=== PATIENT | female | born 1980 | race Caucasian/White ===

== ENCOUNTER 2016-05-02 | Outpatient (CLI) | payer OTHER | END 2016-05-02 12:25 | disposition critical access hospital (66) | CPT/HCPCS: A0425; A0429 ==

== ENCOUNTER 2016-05-02 12:43 | Observation (INO) | payer OTHER ==
[2016-05-02] MEDS ORDERED: LORazepam 2 MG/ML SYRINGE ONE ×2 (12:54→14:07)
[2016-05-02] MEDS ORDERED: SODIUM CHLORIDE 0.9% 1,000 ML IV ONE ×2 (13:47→16:34)
[2016-05-02] MEDS ORDERED: LORazepam 2 MG/ML SYRINGE IVP STA (14:07)
[2016-05-02] MEDS ORDERED: IOPAMIDOL-300 100 ML VIAL IVP ONE (15:18)
[2016-05-02] MEDS ORDERED: SODIUM CHLORIDE FLUSH 0.9% 10 ML SYRINGE IVP PRN (18:22)
[2016-05-02] MEDS ORDERED: ONDANSETRON ODT 4 MG TABLET TL PRN (18:22)
[2016-05-02] MEDS: SODIUM CHLORIDE 0.9% 1,000 ML IV SCH ×2 (20:20→22:56)
[2016-05-02] MEDS: SODIUM CHLORIDE FLUSH 0.9% 10 ML SYRINGE IVP SCH (21:49)
[2016-05-03] MEDS: SODIUM CHLORIDE 0.9% 1,000 ML IV SCH ×2 (06:39→14:44)
[2016-05-03] MEDS: SODIUM CHLORIDE FLUSH 0.9% 10 ML SYRINGE IVP SCH ×2 (06:41→14:45)
[2016-05-03] MEDS ORDERED: POLYETHYLENE GLYCOL 3350 17 GM PACKET PO SCH (09:00)
[2016-05-03] MEDS ORDERED: GADOBUTROL 7.5 MMOL/7.5 ML VIAL IVP ONE (16:02)
[2016-05-03] MEDS ORDERED: POTASSIUM CHLORIDE 20 MEQ TABLET PO STA (16:43)
== END 2016-05-03 18:00 | disposition home or self-care (01) ==
DX: G93.40 Encephalopathy, unspecified (principal); S06.0X9A Concussion with loss of consciousness of unspecified duration, initial encounter; S00.03XA Contusion of scalp, initial encounter; S00.12XA Contusion of left eyelid and periocular area, initial encounter; S40.022A Contusion of left upper arm, initial encounter; V49.9XXA Car occupant (driver) (passenger) injured in unspecified traffic accident, initial encounter; R56.9 Unspecified convulsions; F41.9 Anxiety disorder, unspecified; F90.9 Attention-deficit hyperactivity disorder, unspecified type; F32.9 Major depressive disorder, single episode, unspecified; F17.200 Nicotine dependence, unspecified, uncomplicated
CPT/HCPCS: 36415; 70450; 70486; 70553; 71010; 72125; 74177; 80053; 80306; 80307; 80320; 80329; 81003; 81025; 82330; 82550; 83690; 84443; 84702; 85025; 93005; 93010; 96361; 96374; 99284; 99285; 99406; A9270; A9585; G0378; J2060; Q9967

== ENCOUNTER 2016-07-05 13:54 | Day surgery (SDC) | payer OTHER ==
[2016-07-05] MEDS ORDERED: RHO(D) IMMUNE GLOBULIN 300 MCG SYRINGE IM STA (16:22)
[2016-07-05] MEDS ORDERED: LACTATED RINGERS 1,000 ML IV ONE (17:10)
[2016-07-05] MEDS ORDERED: DEXAMETHASONE 4 MG/ML VIAL IVP ONE (17:20)
[2016-07-05] MEDS ORDERED: fentaNYL 100 MCG/2 ML VIAL IVP ONE (17:20)
[2016-07-05] MEDS ORDERED: KETOROLAC 30 MG/ML VIAL IVP ONE (17:20)
[2016-07-05] MEDS ORDERED: ONDANSETRON 4 MG/2 ML VIAL IVP ONE (17:20)
[2016-07-05] MEDS ORDERED: LIDOCAINE-PF 2% 10 ML AMP SUBQ ONE (17:20)
[2016-07-05] MEDS ORDERED: MIDAZOLAM 2 MG/2 ML VIAL IVP ONE (17:20)
[2016-07-05] MEDS ORDERED: PROPOFOL 200 MG/20 ML VIAL IVP ONE (17:20)
[2016-07-05] MEDS ORDERED: MIDAZOLAM 2 MG/2 ML VIAL ONE (17:40)
== END 2016-07-05 16:21 | disposition home or self-care (01) ==
PROC: 10D17ZZ Extraction of Products of Conception, Retained, Via Natural or Artificial Opening (ICD-10-PCS; principal; 2016-07-05 16:45)
DX: O03.4 Incomplete spontaneous abortion without complication (principal); D25.9 Leiomyoma of uterus, unspecified; F17.200 Nicotine dependence, unspecified, uncomplicated; F32.9 Major depressive disorder, single episode, unspecified; F41.9 Anxiety disorder, unspecified
CPT/HCPCS: 36415; 59812; 76801; 80048; 84702; 85025; 86900; 86901; 96374; 99283; 99284; J7120

== ENCOUNTER 2016-12-12 18:40 | Emergency (ER) | payer OTHER ==
[2016-12-12 18:50] VITALS: BP 155/116
--- NOTE | 2016-12-12 19:39 | ED Physician Documentation ---
PD HPI URI - Stated complaint Stated Complaint: 6 WKS/WEAK/FEVER - Chief complaint Chief Complaint: General - History obtained from History obtained from: Patient - History of Present Illness Timing - onset: Today Timing duration: Hours Timing details: Gradual onset, Still present Associated symptoms: Fever (she says she had temp of 100.5 at home earlier this afternoon. Feeling generally weak. No URI symptoms per se.) Contributing factors: No: Sick contact, Travel, Immunocompromised Similar symptoms before: Has not had sx before Recently seen: Not recently seen Review of Systems Constitutional: reports: Fever, Chills, Myalgias (just today) Nose: denies: Rhinorrhea / runny nose, Congestion Throat: denies: Sore throat Cardiac: denies: Chest pain / pressure, Palpitations Respiratory: denies: Dyspnea, Cough GI: reports: Nausea. denies: Abdominal Pain, Vomiting, Diarrhea : reports: Now EGA (6 weeks). denies: Discharge, Vaginal bleeding Skin: denies: Rash, Lesions PD PAST MEDICAL HISTORY - Past Medical History Past Medical History: Yes Cardiovascular: None Respiratory: None Neuro: None Endocrine/Autoimmune: None GI: Other : None HEENT: Chronic sinusitis Psych: Depression, Anxiety Derm: None - Past Surgical History Past Surgical History: Yes Ortho: Other - Present Medications Home Medications: Ambulatory Orders Medication Instructions Recorded Confirmed buPROPion [Wellbutrin Sr] 300 mg PO BID 05/03/16 05/03/16 Doxylamine Succinate [Wal-Lance] 25 mg PO Q6H PRN #60 tablet 12/12/16 Famotidine [Pepcid] 20 mg PO ONCE #30 tablet 12/12/16 Ondansetron Odt [Zofran] 4 mg TL Q6H PRN #15 tablet 12/12/16 Prazosin [Minipress] 1 mg DAILY 12/12/16 12/12/16 Pyridoxine HCl [Vitamin B-6] 25 mg PO BID #60 tablet 12/12/16 - Allergies Allergies/Adverse Reactions: Allergies Allergy/AdvReac Type Severity Reaction Status Date / Time latex Allergy Unknown Verified 12/12/16 18:51 - Social History Does the pt smoke?: No Smoking Status: Never smoker Does the pt drink ETOH?: No Does the pt have substance abuse?: No PD ED PE NORMAL - Vitals Vital signs reviewed: Yes - General General: Alert and oriented X 3, No acute distress, Well developed/nourished - Neck Neck: Supple, no meningeal sign, No adenopathy - Cardiac Cardiac: RRR, No murmur - Respiratory Respiratory: Clear bilaterally - Abdomen Abdomen: Normal bowel sounds, Soft, Non tender, Non distended - Female Female : Deferred, Other (bedside U/S showed IUP with GS 5.5 size. ) - Rectal Rectal: Deferred - Back Back: No CVA TTP - Derm Derm: Normal color, Warm and dry Results - Vitals Vitals: Oxygen O2 Source Room air - Labs Labs: Laboratory Tests 12/12/16 18:55 Urine Color YELLOW Urine Clarity CLEAR Urine pH 7.5 Ur Specific [place] 1.015 Urine Protein NEGATIVE Urine Glucose (UA) NEGATIVE Urine Ketones NEGATIVE Urine Occult Blood NEGATIVE Urine Nitrite NEGATIVE Urine Bilirubin NEGATIVE Urine Urobilinogen 0.2 (NORMAL) Ur Leukocyte Esterase NEGATIVE Ur Microscopic Review NOT INDICATED Urine Culture Comments NOT INDICATED Procedures - Bedside sono Bedside sono by EMP: Bedside sono showed IUP with GS 5.5 size. No free fluid. Heart beat not seen but reasonable with dates. PD MEDICAL DECISION MAKING - ED course Complexity details: re-evaluated patient (repeat BP before discharge was normal. Initial was not accurate I don't think. ), considered differential, d/w patient Departure - Departure Disposition: 01 Home, Self Care Clinical Impression: Mild fever, Early stage of Condition: Stable Record reviewed to determine appropriate education?: Yes Follow-Up: Camilo Hylton MD [Provider Admit Priv/Credential] - Prescriptions: Doxylamine Succinate [Wal-Lance] 25 mg PO Q6H PRN #60 tablet PRN Reason: Nausea / Vomiting Famotidine [Pepcid] 20 mg PO ONCE #30 tablet Ondansetron Odt [Zofran] 4 mg TL Q6H PRN #15 tablet PRN Reason: Nausea / Vomiting Pyridoxine HCl [Vitamin B-6] 25 mg PO BID #60 tablet Comments: Drink lots of fluids. At this point there is no obvious cause for the fever. It may be an early cold. See how you feel tomorrow or the next day. Tylenol if needed for fevers. For nausea, take vitamin B6 twice daily for the next month. Add doxylamine 3 times a day as needed. He can also use ondansetron for nausea as needed. For the heartburn and reflux, use famotidine daily for the next month and you can add antacid such as Maalox or Mylanta. Recheck with Dr. Hylton's office, call them tomorrow. They may want to get a repeat hCG blood level in 2-3 days to ensure its rising appropriately. The looked appropriate for dates at this point. Discharge Date/Time: 12/12/16 21:00
[2016-12-12 19:44] LABS: BILIRUBIN,URINE NEGATIVE (NEGATIVE); PH,URINE 7.5 PH (5.0-7.5); UA CHARGE (STRIP ONLY) YES; UR CULTURE IF IND NOT INDICATED
[2016-12-12] MEDS ORDERED: ONDANSETRON ODT 4 MG TABLET TL STA (20:13)
[2016-12-12] MEDS ORDERED: ACETAMINOPHEN 325 MG TABLET PO STA (20:13)
[2016-12-12] MEDS ORDERED: MAG HYDROX/AL HYDROX/SIMETH 30 ML UDC PO STA (20:25)
[2016-12-12] MEDS ORDERED: FAMOTIDINE 20 MG TABLET PO STA (20:25)
[2016-12-12] MEDS ORDERED: ONDANSETRON ODT 4 MG TABLET ONE (20:26)
[2016-12-12] MEDS ORDERED: ACETAMINOPHEN 325 MG TABLET PO ONE (20:26)
[2016-12-12] MEDS ORDERED: FAMOTIDINE 20 MG TABLET ONE (20:44)
[2016-12-12] MEDS ORDERED: MAG HYDROX/AL HYDROX/SIMETH 30 ML UDC ONE (20:44)
== END 2016-12-12 21:00 | disposition home or self-care (01) ==
LOC: ED 18:40
DX: O26.891 Other specified pregnancy related conditions, first trimester (principal); Z3A.01 Less than 8 weeks gestation of pregnancy; R50.9 Fever, unspecified
CPT/HCPCS: 81003; 99283; A9270; Q0162; 81001; 87086

== ENCOUNTER 2016-12-15 08:03 | Emergency (ER) | payer OTHER ==
--- NOTE | 2016-12-15 08:08 | ED Physician Documentation ---
PD HPI FEMALE - Stated complaint Stated Complaint: SPOTTING/7WKS - Chief complaint Chief Complaint: General - History obtained from History obtained from: Patient - History of Present Illness Timing - onset: Today Timing - details: Abrupt onset, Still present (had onset of some lower abd/ pelvic cramps and spotting blood vaginally. Is about 7 weeks by dates and she is concerned about miscarriage, as had one in June at about same gestational age.) Associated symptoms: Fever (subjectively couple days ago for a day, then normal. Had feeling of general weakness with it. Improved yesterday and then with cramps and bleeding today.), Vaginal bleeding. No: Chest/shoulder pain, Abdominal pain, Vaginal discharge, Dysuria, Urinary frequency Contributing factors: (about 7 weeks by dates) Similar symptoms before: Diagnosis (early miscarriage in June 2016.) Recently seen: Emergency Dept (for general weakness and subjective fever, malaise) Review of Systems Constitutional: denies: Myalgias Ears: denies: Drainage/discharge, Tinnitus/ringing Throat: denies: Sore throat Cardiac: denies: Chest pain / pressure, Palpitations Respiratory: denies: Dyspnea, Cough Endocrine: denies: Weight loss, Easy bruising / bleeding Immunocompromised: denies: Immunocompromised PD PAST MEDICAL HISTORY - Past Medical History Cardiovascular: None Respiratory: None Neuro: None Endocrine/Autoimmune: None GI: Other : None HEENT: Chronic sinusitis Psych: Depression, Anxiety Derm: None - Past Surgical History Past Surgical History: Yes Ortho: Other - Present Medications Home Medications: Ambulatory Orders Medication Instructions Recorded Confirmed buPROPion [Wellbutrin Sr] 300 mg PO BID 05/03/16 05/03/16 Doxylamine Succinate [Wal-Lance] 25 mg PO Q6H PRN #60 tablet 12/12/16 Famotidine [Pepcid] 20 mg PO ONCE #30 tablet 12/12/16 Ondansetron Odt [Zofran] 4 mg TL Q6H PRN #15 tablet 12/12/16 Prazosin [Minipress] 1 mg DAILY 12/12/16 12/12/16 Pyridoxine HCl [Vitamin B-6] 25 mg PO BID #60 tablet 12/12/16 - Allergies Allergies/Adverse Reactions: Allergies Allergy/AdvReac Type Severity Reaction Status Date / Time latex Allergy Unknown Verified 12/12/16 18:51 - Social History Does the pt smoke?: Yes Smoking Status: Current every day smoker Does the pt drink ETOH?: Yes Does the pt have substance abuse?: No PD ED PE NORMAL - Vitals Vital signs reviewed: Yes - General General: Alert and oriented X 3, No acute distress (but some anxious), Well developed/nourished - HEENT HEENT: Pharynx benign - Neck Neck: Supple, no meningeal sign - Cardiac Cardiac: RRR, No murmur - Respiratory Respiratory: Clear bilaterally - Abdomen Abdomen: Normal bowel sounds, Soft, Non distended, No organomegaly, Other - Female Female : Deferred - Rectal Rectal: Deferred - Back Back: No CVA TTP - Derm Derm: Normal color, Warm and dry, No rash - Extremities Extremities: No edema, No calf tenderness / cord Results - Vitals Vitals: Vital Signs - 24 hr 12/15/16 12/15/16 08:06 10:14 Temperature 36.1 C L 36.3 C L Heart Rate 72 82 Respiratory 16 12 Rate Blood Pressure 141/96 H 127/89 H O2 Saturation 99 96 Oxygen O2 Source Room air - Labs Labs: Laboratory Tests 12/15/16 12/15/16 12/15/16 08:41 08:41 10:00 HCG, Quant 606.02 Urine Color LIGHT YELLOW Urine Clarity HAZY Urine pH 5.5 Ur Specific [place] <=1.005 Urine Protein NEGATIVE Urine Glucose (UA) NEGATIVE Urine Ketones NEGATIVE Urine Occult Blood LARGE H Urine Nitrite NEGATIVE Urine Bilirubin NEGATIVE Urine Urobilinogen 0.2 (NORMAL) Ur Leukocyte Esterase NEGATIVE Urine RBC 0-5 Urine WBC 4-5 Ur Squamous Epith Cells MOD Squamous H Urine Bacteria Few Ur Microscopic Review INDICATED Urine Culture Comments NOT INDICATED Blood Type B NEGATIVE - Rads (name of study) OB U.S Radiology: Prelim report reviewed (IUP with sac size c/w 5.3 weeks. No free fluid. ) PD MEDICAL DECISION MAKING - ED course Complexity details: reviewed results, considered differential (concern for threatened miscarriage. U/S bedside showed IUP about 5.5 weeks and no free fluid. No heartbeat seen, and likely due to dates. But got formal U/S that showed similar findings 5.3 weeks and no noted FHB, due to early gestation. ), d /w patient Departure - Departure Disposition: 01 Home, Self Care Clinical Impression: Bleeding in early Condition: Stable Record reviewed to determine appropriate education?: Yes Instructions: Bleeding Early Preg Comments: Drink lots of fluids. Tylenol if needed for pains. Have your hCG level drawn again in 3 days. This will tell us if there is normal progression of the . He would need to call for the test results later in that day or the following morning to give time for the results. Alternatively you can return to the ER for repeat of this if you prefer. Return if significant bleeding, fever, repetitive vomiting, other concerns. Follow-up with the [facility] clinic as planned subsequently. Discharge Date/Time: 12/15/16 10:53
[2016-12-15 10:15] VITALS: BP 127/89
--- NOTE | 2016-12-15 10:55 | Ultrasound Report ---
EXAM: FIRST TRIMESTER OBSTETRIC ULTRASOUND (Less than 11 weeks) EXAM DATE: 12/15/2016 09:44 AM. CLINICAL HISTORY: Early preg and vag bleeding. LMP: 10/26/2016 COMPARISONS: No prior comparison available for this . Limited comparison made with prior fet al ultrasound of 07/05/2016.. TECHNIQUE: Transabdominal and transvaginal ultrasound examination with static image documentation. CLINICAL DATES: EGA 7 weeks and 1 day with CALDERON 08/02/2017 based on LMP. ASSESSMENT: Gestational Sac: A single intrauterine gestational sac measuring 6 mm versus a complex endometrial fl uid collection.. Mean gestational sac diameter: 6 mm = 5 weeks and 2 days. Embryo: Not visualized. No definite pole identified. Yolk sac: Not identified Amniotic fluid: Not accurately assessed at this gestational age. Early placenta: Not visible at this gestational age. Other: No perigestational fluid collection demonstrated. MATERNAL STRUCTURES: Uterus: Anteverted. Contains numerous fibroids, the largest of which measures 6.8 x 6.2 x 6.5 cm at t he superior right aspect of the uterine fundus. Cervix: Closed. Right Ovary/Adnexa: Unremarkable. The ovary measures 3.1 x 1.2 x 2.2 cm, contains a dominant 1.8 x 1 .6 x 1.6 cm cyst. Left Ovary/Adnexa: Unremarkable. The ovary measures 2.9 x 0.9 x 1.7 cm. Free Fluid: None. Other: None. IMPRESSION: 1. Possible single intrauterine gestational sac but identifiable pole or yolk sac. Mean diamete r of the possible gestational sac is 6 mm corresponding with an estimated gestational age of 5 weeks and 2 days (CALDERON of 08/15/2017 versus CALDERON of 08/05/2017 based on LMP). Recommend short-term follow-up ultrasound in 7-10 days and correlation with serial beta hCGs if clinically indicated. 2. Fibroid uterus. [facility] Referring Provider Line: [phone] SITE ID: [id number]
[2016-12-15 11:20] LABS: BILIRUBIN,URINE NEGATIVE (NEGATIVE); PH,URINE 5.5 PH (5.0-7.5)
[2016-12-15 11:24] LABS: UA w/ MICROSCOPIC CHARGE YES
[2016-12-15 11:33] LABS: UR CULTURE IF IND NOT INDICATED
== END 2016-12-15 10:53 | disposition home or self-care (01) ==
LOC: ED 08:03
DX: O46.91 Antepartum hemorrhage, unspecified, first trimester (principal); Z3A.01 Less than 8 weeks gestation of pregnancy; O99.331 Smoking (tobacco) complicating pregnancy, first trimester
CPT/HCPCS: 36415; 76801; 76817; 81001; 81003; 84702; 86900; 86901; 87086; 99283

== ENCOUNTER 2016-12-17 15:10 | Outpatient (CLI) | payer OTHER | END 2016-12-17 15:11 | disposition home or self-care (01) | LOC: LAB 15:10 | PROVIDERS: ATTEND Emergency Medicine | DX: O20.0 Threatened abortion (principal) | CPT/HCPCS: 36415; 84702 ==

== ENCOUNTER 2017-02-10 19:11 | Emergency (ER) | payer OTHER ==
--- NOTE | 2017-02-10 21:32 | ED Physician Documentation ---
PD HPI OPHTHO - Stated complaint Stated Complaint: RIGHT EYE PAIN - Chief complaint Chief Complaint: Heent - History obtained from History obtained from: Patient - History of Present Illness Timing - onset: Yesterday Timing - duration: Days (2) Timing - details: Gradual onset, Still present Location: Right Quality / character: Burning, Aching Associated symptoms: Redness, Swelling, Discharge. No: FB sensation, Photophobia, Double vision, Loss of vision Contributing factors: Recent URI. No: Exposed to conjunctivitis, FB Similar symptoms before: Has not had sx before Recently seen: Not recently seen Review of Systems Constitutional: denies: Fever, Chills Eyes: reports: Decreased vision, Discharge, Irritation. 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 HEENT: Chronic sinusitis Psych: Depression, Anxiety Derm: None - Past Surgical History Past Surgical History: Yes Ortho: Other - Present Medications Home Medications: Ambulatory Orders Medication Instructions Recorded Confirmed buPROPion [Wellbutrin Sr] 300 mg PO BID 05/03/16 02/10/17 Prazosin [Minipress] 1 mg DAILY 12/12/16 02/10/17 - Allergies Allergies/Adverse Reactions: Allergies Allergy/AdvReac Type Severity Reaction Status Date / Time latex Allergy Unknown Verified 02/10/17 19:22 - Social History Does the pt smoke?: Yes Smoking Status: Current every day smoker Does the pt drink ETOH?: Yes Does the pt have substance abuse?: No - Immunizations Immunizations are current?: Yes - POLST Patient has POLST: No PD ED PE NORMAL - Vitals Vital signs reviewed: Yes - General General: Alert and oriented X 3, No acute distress, Well developed/nourished - HEENT HEENT: PERRL, EOMI, Ears normal, Moist mucous membranes, Pharynx benign - Neck Neck: Supple, no meningeal sign, No adenopathy PD ED PE EXPANDED - Eyes Eyes: EOMI, Right eye, Injected conj/sclera, Exudate. No: Conj/sclera FB, Corneal FB Results - Vitals Vitals: Oxygen O2 Source Room air PD MEDICAL DECISION MAKING - ED course Complexity details: considered differential, d/w patient Departure - Departure Disposition: 01 Home, Self Care Clinical Impression: Conjunctivitis Qualifiers: Conjunctivitis type: acute Acute conjunctivitis type: bacterial Laterality: right Qualified Code(s): H10.31 - Unspecified acute conjunctivitis, right eye Condition: Stable Record reviewed to determine appropriate education?: Yes Instructions: ED Conjunctivitis Bacterial Comments: Use the sulfa antibiotic eyedrops every 2-3 hours while awake initially in both eyes for the first 1-2 days and then just the right eye for a total of 3-5 days until fully cleared. Tylenol or ibuprofen if needed for pain. The proparacaine drops can be used initially for pain improvement. However want to make sure the conjunctivitis is improving so not to use the proparacaine numbing drops beyond 12 hours. It should be improving a fair amount by that point. Add hydrocodone if needed for pain not improved by that. Recheck if not better over the next 1-2 days. Discharge Date/Time: 02/10/17 22:26
[2017-02-10] MEDS ORDERED: PROPARACAINE 0.5% OPHTH DROPS 15 ML EACHEYE STA (21:37)
[2017-02-10] MEDS ORDERED: IBUPROFEN 600 MG TABLET PO STA (21:47)
[2017-02-10] MEDS ORDERED: HYDROcod/ACET 5/325 Prepack 6 PO ONE ×2 (21:47→22:02)
[2017-02-10] MEDS ORDERED: SULFACETAMIDE 10% OPHTH DROPS EACHEYE STA (21:47)
[2017-02-10] MEDS ORDERED: PROPARACAINE 0.5% OPHTH DROPS 15 ML ONE (21:54)
[2017-02-10] MEDS ORDERED: IBUPROFEN 600 MG TABLET PO ONE (22:02)
[2017-02-10] MEDS ORDERED: SULFACETAMIDE 10% OPHTH DROPS ONE (22:02)
[2017-02-10 22:08] VITALS: BP 128/94
== END 2017-02-10 22:26 | disposition home or self-care (01) ==
LOC: ED 19:11
DX: H10.31 Unspecified acute conjunctivitis, right eye (principal); F17.200 Nicotine dependence, unspecified, uncomplicated
CPT/HCPCS: 99282; 99283; A9270; J3490